=== PATIENT | male | born 1945 | race Caucasian/White ===

== ENCOUNTER 2016-11-11 11:48 | Emergency (ER) | payer MEDICARE, OTHER ==
[2016-11-11 12:31] LABS: BASO % 0.1 % (0.2-1.2); EOS # 0.1 10_X3_uL (0.0-0.5); EOS % 0.7 % (0.8-7.0); GRAN % 92.5 % (34.0-67.9); HEMATOCRIT 41.7 % (40-51); HEMOGLOBIN 14.2 g/dL (13.7-17.5); LYMPH # 0.2 10_X3_uL (1.3-3.6); LYMPH % 2.1 % (21.8-53.1); MEAN CORPUSCULAR HEMOGLOBIN 33.4 pg (27.0-33.0); MEAN CORPUSCULAR HGB CONC 34.1 g/dL (32.0-36.0); MEAN CORPUSCULAR VOLUME 98.1 fL (79-92); MEAN PLATELET VOLUME 9.8 fl (7.5-11.5); MONO # 0.4 10_X3_uL (0.3-0.8); MONO % 4.6 % (5.3-12.2); PLATELET COUNT 194 x10_3/uL (163-337); RED BLOOD COUNT 4.25 x10_6/uL (4.6-6.1); RED CELL DISTRIBUTION WIDTH 13.3 % (11.6-14.4); WHITE BLOOD COUNT 7.6 x10_3/uL (4.2-9.1)
[2016-11-11 12:33] LABS: URINE BILIRUBIN 1+ (NEGATIVE); URINE BLOOD NEGATIVE (NEGATIVE); URINE GLUCOSE (UA) NORMAL (NORMAL); URINE KETONE 1+ (NEGATIVE); URINE LEUKOCYTE ESTERASE TRACE (NEGATIVE); URINE NITRATE NEGATIVE (NEGATIVE); URINE PROTEIN TRACE (NEGATIVE)
[2016-11-11 12:50] LABS: ALBUMIN 4.3 gm/dL (3.4-5.0); ALKALINE PHOSPHATASE 63 U/L (50-136); ALT/SGPT 18 U/L (7.53-40.17); AST/SGOT 25 U/L (6.66-35.34); BILIRUBIN,TOTAL 0.34 mg/dL (0.0-1.0); CALCIUM 8.5 mg/dL (8.7-10.7); CARBON DIOXIDE 22 mmol/L (21-32); CREATININE 0.9 mg/dL (0.6-1.3); GLUCOSE,RANDOM 165 mg/dL (70-99); POTASSIUM 4.3 mmol/L (3.5-5.1); SODIUM 138 mmol/L (136-145); TOTAL PROTEIN 6.6 gm/dL (6.4-8.2)
[2016-11-11 12:53] LABS: URINE BACTERIA TRACE (NONE SEEN); URINE MUCUS 2+; URINE RBC 0-5 /[HPF] (0-2); URINE SQUAMOUS EPITHELIAL CELL 0-10 /[HPF] (NONE SEEN); URINE WBC 0-5 /[HPF] (0-3); URINE YEAST FEW (NONE SEEN)
[2016-11-11 12:56] LABS: BLOOD UREA NITROGEN 29 mg/dL (7-18)
== END 2016-11-11 14:17 | disposition home or self-care (01) ==
LOC: ER 11:48
PROVIDERS: General Practice
DX: E86.0 Dehydration (principal); R00.0 Tachycardia, unspecified; R53.1 Weakness; G89.29 Other chronic pain; M54.9 Dorsalgia, unspecified; R80.9 Proteinuria, unspecified
CPT/HCPCS: 36415; 71010; 80053; 81001; 85025; 93005; 96360; 99070; 99284; 99285-25